=== PATIENT | female | born 1975 | race Caucasian/White ===

== ENCOUNTER 2019-08-10 10:52 | Emergency (ER) | payer SELFPAY ==
[~2019-08-10] VITALS: Ht 157.5 cm; Wt 138.7 kg
[~2019-08-10 10:52] MED LIST: FER325 PO; METF500T24 PO
[2019-08-10 10:55] VITALS: Ht 157.5 cm; Wt 138.7 kg
[2019-08-10] MEDS ORDERED: KETOROLAC 15 MG INJ IV STA (12:22)
[2019-08-10] MEDS ORDERED: SODIUM CHLORIDE 0.9% 1L BAG IV* STA (12:22)
[2019-08-10] MEDS ORDERED: ACETAMINOPHEN 325 MG TAB PO STA (12:22)
[2019-08-10] MEDS ORDERED: CEFTRIAXONE 1 GM/50 ML (PMX) 50 ML IVPB STA (12:22)
[2019-08-10 18:42] VITALS: BP 144/78; PULSE 88; RESP 16
== END 2019-08-10 18:44 | disposition home or self-care (01) ==
LOC: E/R 10:52
DX: B34.9 Viral infection, unspecified (principal); D72.829 Elevated white blood cell count, unspecified; E11.9 Type 2 diabetes mellitus without complications; Z79.84 Long term (current) use of oral hypoglycemic drugs
CPT/HCPCS: 71045; 80053; 81001; 81025; 83605; 84484; 85025; 85610; 85730; 87040; 87086; 87400; 93005; J0696; J1885; J7030; 96365; 96366; 96375